=== PATIENT | female | born 1940 | race Caucasian/White ===

== ENCOUNTER → 2017-01-14 | Outpatient (CLI) | payer MEDICARE, MEDICAID ==
[~2017-01-14] MED LIST: ASCORBIC ACID500 MG PO; ASPIRIN LO-DOSE81 MG PO; AZULFIDINE500 MG PO; CARDIZEM CD (T240 MG PO; CELEBREX200 MG PO; CENTRUM SILVER1 TAB PO; COLACE100 MG PO; COUMADIN ** IA5 MG PO; IMDUR30 MG PO; KLOR-CON 1010 MEQ PO; LISINOPRIL-HCT1 EAC1 PO; LOVENOX 3030 MG/0.3 SUB-Q; METAMUCIL PACKE1 PKT PO; MILK OF MA400 MG/5 M PO; MIRALAX17 GM PO; MULTAQ400 MG PO; NEURONTIN300 MG PO; NORCO 5-325 MG1 TAB PO; OXYGEN M-15 INH; PRAVACHOL80 MG PO; PRILOSEC20 MG PO; SINGULAIR10 MG PO; SPIRIVA HANDIHA1 KIT INH; TOPROL XL50 MG PO; TYLENOL325 MG PO; ULTRAM50 MG PO; VALIUM5 MG PO; VITAMIN B-122500 MCG SL
== END ==
LOC: GOPD 01-08 10:00
DX: M51.16 Intervertebral disc disorders with radiculopathy, lumbar region (principal); M96.1 Postlaminectomy syndrome, not elsewhere classified
CPT/HCPCS: J1040